=== PATIENT | female | born 1945 | race African-American/Black ===

== ENCOUNTER 2025-01-01 21:39 | Inpatient (IN) | payer MEDICARE, OTHER ==
[~2025-01-01] VITALS: Ht 154.9 cm; Wt 41.7 kg
[2025-01-01 22:38] LABS: BASOPHILS # (AUTO) 0.1 K/uL (0.0-0.2); BASOPHILS % (AUTO) 1.1 % (0.0-2.0); EOSINOPHILS # (AUTO) 0.3 K/uL (0.0-0.7); HEMATOCRIT 43 % (33-45); HEMOGLOBIN 13.8 g/dL (11.5-14.8); LYMPHOCYTES # (AUTO) 1.1 K/uL (0.8-4.8); LYMPHOCYTES % (AUTO) 18.2 % (20.0-44.0); MEAN CORPUSCULAR HEMOGLOBIN 27 PG (26.0-33.0); MEAN CORPUSCULAR HGB CONC 32 g/dl (31.0-36.0); MEAN CORPUSCULAR VOLUME 85 fL (82-100); MONOCYTES # (AUTO) 0.8 K/uL (0.1-1.30); MONOCYTES % (AUTO) 13.5 % (2.0-12.0); NEUTROPHILS # (AUTO) 3.6 K/uL (1.8-8.9); NEUTROPHILS % (AUTO) 62.2 % (43.0-81.0); PLATELET COUNT (AUTO) 406 K/uL (150-450); RED BLOOD CELL COUNT(AUTO) 5.07 MIL/uL (4.0-5.2); RED CELL DISTRIBUTION WIDTH 15.7 % (11.5-15.0); WHITE BLOOD COUNT (AUTO) 5.8 K/uL (4.3-11.0)
[2025-01-01] MEDS: IV NS 0.9% 1,000 ML BAG IV ONE (23:00)
[2025-01-01] MEDS: AZITHROMYCIN 500 MG in IV D5W 250 ML IV ONE (23:00)
[2025-01-01] MEDS ORDERED: AZITHROMYCIN 500 MG VIAL ONE (23:09)
[2025-01-01] MEDS ORDERED: CEFTRIAXONE 1GM BAG (ER ONLY) 50 ML IV ONE (23:09)
[2025-01-01] MEDS: CEFTRIAXONE 1GM BAG (ER ONLY) 50 ML IV ONE (23:31)
[2025-01-01 23:47] LABS: LACTIC ACID 2.7 mmol/L (0.4-2.0)
[2025-01-02] MEDS: oxyCODONE/APAP (5/325 MG) 1 UDTAB TABLET PO ONE
[2025-01-02 00:08] LABS: CALCIUM, SERUM 8.9 mg/dL (8.5-10.1); CARBON DIOXIDE 27 mmol/L (21-32); CHLORIDE 100 mmol/L (98-107); CREATININE 0.8 mg/dL (0.6-1.3); GLUCOSE 91 mg/dL (74-106); POTASSIUM 3.5 mmol/L (3.5-5.1); SODIUM SERUM 138 mmol/L (136-145); UREA NITROGEN, BLOOD 18 mg/dL (7-18)
[2025-01-02 00:22] LABS: ALANINE AMINOTRANSFERASE 18 U/L (12-78); ALBUMIN 2.9 g/dL (3.4-5.0); ALKALINE PHOSPHATASE 54 U/L (46-116); ASPARTATE AMINOTRANSFERASE 19 U/L (15-37); BILIRUBIN,DIRECT 0.2 mg/dL (0.0-0.2); BILIRUBIN,TOTAL 0.5 mg/dL (0.2-1.0); NT-PRO BNP 283 pg/mL (0-125); TOTAL PROTEIN, SERUM 7.2 g/dL (6.4-8.2)
[2025-01-02] MEDS ORDERED: MAG HYDROX/AL HYDROX/SIMETH 30 ML UDC PO PRN (00:30)
[2025-01-02 00:47] LABS: INR 1.2 (0.91-1.10); PARTIAL THROMBOPLASTIN TIME 31.6 SEC (24.3-34.3); PROTHROMBIN TIME 12.6 SECS (9.2-11.1)
[2025-01-02 01:21] VITALS: BP 137/101; TEMP 97.9; O2SAT 93
[2025-01-02] MEDS: ENOXAPARIN SODIUM 30 MG/0.3 ML DISP.SYRIN SQ SCH (01:30)
[2025-01-02 02:00] VITALS: BP 111/80; TEMP 98.3; O2SAT 97
[2025-01-02] MEDS: ONDANSETRON HCL/PF 4 MG/2 ML VIAL IVP PRN (02:02)
[2025-01-02 06:49] LABS: BASOPHILS % (AUTO) 0.4 % (0.0-2.0); EOSINOPHILS # (AUTO) 0.1 K/uL (0.0-0.7); EOSINOPHILS % (AUTO) 1.9 % (0.0-6.0); HEMATOCRIT 39 % (33-45); HEMOGLOBIN 12.6 g/dL (11.5-14.8); LYMPHOCYTES % (AUTO) 16.8 % (20.0-44.0); MEAN CORPUSCULAR HEMOGLOBIN 27 PG (26.0-33.0); MEAN CORPUSCULAR HGB CONC 32 g/dl (31.0-36.0); MEAN CORPUSCULAR VOLUME 85 fL (82-100); MONOCYTES # (AUTO) 0.7 K/uL (0.1-1.30); MONOCYTES % (AUTO) 10.8 % (2.0-12.0); NEUTROPHILS # (AUTO) 4.3 K/uL (1.8-8.9); NEUTROPHILS % (AUTO) 70.1 % (43.0-81.0); PLATELET COUNT (AUTO) 383 K/uL (150-450); RED CELL DISTRIBUTION WIDTH 15.4 % (11.5-15.0); WHITE BLOOD COUNT (AUTO) 6.2 K/uL (4.3-11.0)
[2025-01-02 07:30] VITALS: BP 96/102; TEMP 97.7; O2SAT 100
[2025-01-02 07:31] LABS: CALCIUM, SERUM 8.3 mg/dL (8.5-10.1); CREATININE 0.6 mg/dL (0.6-1.3); POTASSIUM 4.6 mmol/L (3.5-5.1)
[2025-01-02 08:25] LABS: PHOSPHORUS 3.3 mg/dL (2.5-4.9)
[2025-01-02] MEDS ORDERED: ATOR20TA PO (08:44)
[2025-01-02] MEDS ORDERED: METO25TA4 PO (08:44)
[2025-01-02] MEDS ORDERED: BIMA2.5D5 EACHEYE (08:44)
[2025-01-02] MEDS ORDERED: MONT10TA22 PO (08:44)
[2025-01-02] MEDS: PANTOPRAZOLE 40 MG VIAL IV SCH (08:50)
[2025-01-02] MEDS: HYDROCODONE/APAP 5/325MG TABLET PO PRN (08:51)
[2025-01-02] MEDS ORDERED: MONTELUKAST SODIUM (10MG) 10 MG TABLET PO PRN (10:00)
[2025-01-02] MEDS ORDERED: oxyCODONE/APAP (5/325 MG) 1 UDTAB TABLET PO PRN (10:00)
[2025-01-02] MEDS: MORPHINE SULFATE INJ 2 MG/ML DISP.SYRIN IV PRN (10:09)
[2025-01-02] MEDS: ENSURE ENLIVE 237 ML LIQUID (VANILLA) PO SCH (12:08)
[2025-01-02 16:43] VITALS: BP 120/93; TEMP 97.9; O2SAT 94
[2025-01-02 20:00] VITALS: BP 133/91; TEMP 98.2; O2SAT 96
[2025-01-02] MEDS: CEFTRIAXONE 1 G in IV D5W 50 ML IV SCH (22:42)
[2025-01-02] MEDS: AZITHROMYCIN 500 MG in IV D5W 250 ML IV SCH (23:12)
[2025-01-03] VITALS: BP 118/87; TEMP 98.1; O2SAT 94
[2025-01-03 04:00] VITALS: BP 119/80; TEMP 97.9; O2SAT 100
[2025-01-03 07:00] VITALS: BP 107/74; TEMP 97.7; O2SAT 96
[2025-01-03] MEDS: METOPROLOL SUCCINATE 25 MG TAB.SR.24H PO SCH (08:13)
[2025-01-03] MEDS: PANTOPRAZOLE 40 MG TABLET.DR PO SCH (08:13)
[2025-01-03 11:30] VITALS: BP 97/85; TEMP 98.6; O2SAT 96
[2025-01-03 13:08] LABS: PROTEIN, BODY FLUID 4.4 G/DL
[2025-01-03 14:03] LABS: APPEARANCE,SPUN,BODY FLUID CLEAR (CLEAR)
[2025-01-03 14:04] LABS: TOTAL VOLUME,BODY FLUID 1400 mL
[2025-01-03 14:14] LABS: WBC, BODY FLUID 2094 /cu. mm. (0-200)
[2025-01-03 14:17] LABS: MONOCYTES,BODY FLUID 3 %
[2025-01-03] MEDS: LIDOCAINE 5% OINT 35.44 GM TUBE TP SCH (14:53)
[2025-01-03] MEDS: ACETAMINOPHEN 325 MG TABLET PO PRN (16:18)
[2025-01-03] MEDS: AMMONIUM LACTATE 227 GM BOTTLE TP SCH (16:19)
[2025-01-03 20:00] VITALS: BP 90/78; TEMP 98.4; O2SAT 100
[2025-01-04] VITALS: BP 115/74; TEMP 98.2; O2SAT 98
[2025-01-04] MEDS: MAGNESIUM HYDROXIDE 30 ML UDC PO PRN (03:33)
[2025-01-04 04:00] VITALS: BP 111/79; TEMP 98.2; O2SAT 91; O2SAT 97
[2025-01-04 06:57] LABS: BASOPHILS % (AUTO) 0.6 % (0.0-2.0); EOSINOPHILS # (AUTO) 0.3 K/uL (0.0-0.7); EOSINOPHILS % (AUTO) 6.6 % (0.0-6.0); HEMATOCRIT 38 % (33-45); HEMOGLOBIN 12.5 g/dL (11.5-14.8); LYMPHOCYTES # (AUTO) 0.8 K/uL (0.8-4.8); LYMPHOCYTES % (AUTO) 16.6 % (20.0-44.0); MEAN CORPUSCULAR HEMOGLOBIN 28 PG (26.0-33.0); MEAN CORPUSCULAR HGB CONC 33 g/dl (31.0-36.0); MEAN CORPUSCULAR VOLUME 84 fL (82-100); MONOCYTES % (AUTO) 19.9 % (2.0-12.0); NEUTROPHILS # (AUTO) 2.8 K/uL (1.8-8.9); NEUTROPHILS % (AUTO) 56.3 % (43.0-81.0); PLATELET COUNT (AUTO) 348 K/uL (150-450); RED BLOOD CELL COUNT(AUTO) 4.55 MIL/uL (4.0-5.2); RED CELL DISTRIBUTION WIDTH 15.4 % (11.5-15.0)
[2025-01-04 07:23] LABS: CALCIUM, SERUM 8.4 mg/dL (8.5-10.1); CREATININE 0.6 mg/dL (0.6-1.3); POTASSIUM 4.2 mmol/L (3.5-5.1)
[2025-01-04 08:00] VITALS: BP 116/72; TEMP 98.1; O2SAT 97
[2025-01-04 12:00] VITALS: BP 97/59; TEMP 98.2; O2SAT 94
[2025-01-04 16:23] VITALS: BP 103/73; TEMP 98.4; O2SAT 93
[2025-01-04 20:00] VITALS: BP 129/88; TEMP 98.6; O2SAT 93
[2025-01-05] VITALS: BP 106/57; TEMP 98.6; O2SAT 94
[2025-01-05 06:00] VITALS: BP 131/86; TEMP 98.6; O2SAT 93
[2025-01-05 08:00] VITALS: BP 113/81; TEMP 98.1; O2SAT 94
[2025-01-05] MEDS: MORPHINE SULFATE INJ 2 MG/ML DISP.SYRIN IV PRN (11:50)
[2025-01-05 12:00] VITALS: BP 144/84; TEMP 98.2; O2SAT 100
[2025-01-05] MEDS ORDERED: MORPHINE SULFATE INJ 2 MG/ML DISP.SYRIN IV PRN (14:00)
[2025-01-05 16:00] VITALS: BP 111/90; TEMP 98.1; O2SAT 94
[2025-01-05 21:21] VITALS: BP 124/73; TEMP 98.4; O2SAT 96
[2025-01-06 00:10] VITALS: BP 127/116; TEMP 98; O2SAT 96
[2025-01-06 07:52] LABS: CALCIUM, SERUM 9.1 mg/dL (8.5-10.1); CREATININE 0.7 mg/dL (0.6-1.3); POTASSIUM 4.2 mmol/L (3.5-5.1)
[2025-01-06 07:54] LABS: BASOPHILS % (AUTO) 0.7 % (0.0-2.0); EOSINOPHILS # (AUTO) 0.2 K/uL (0.0-0.7); EOSINOPHILS % (AUTO) 4.3 % (0.0-6.0); HEMATOCRIT 39 % (33-45); HEMOGLOBIN 12.9 g/dL (11.5-14.8); LYMPHOCYTES # (AUTO) 1.3 K/uL (0.8-4.8); LYMPHOCYTES % (AUTO) 22.6 % (20.0-44.0); MEAN CORPUSCULAR HEMOGLOBIN 28 PG (26.0-33.0); MEAN CORPUSCULAR HGB CONC 33 g/dl (31.0-36.0); MEAN CORPUSCULAR VOLUME 83 fL (82-100); MONOCYTES # (AUTO) 0.9 K/uL (0.1-1.30); MONOCYTES % (AUTO) 15.7 % (2.0-12.0); NEUTROPHILS # (AUTO) 3.3 K/uL (1.8-8.9); NEUTROPHILS % (AUTO) 56.7 % (43.0-81.0); PLATELET COUNT (AUTO) 408 K/uL (150-450); RED BLOOD CELL COUNT(AUTO) 4.64 MIL/uL (4.0-5.2); RED CELL DISTRIBUTION WIDTH 15.3 % (11.5-15.0); WHITE BLOOD COUNT (AUTO) 5.7 K/uL (4.3-11.0)
[2025-01-06 08:00] VITALS: BP 118/70; TEMP 97.9; O2SAT 99
[2025-01-06 12:00] VITALS: BP 129/82; TEMP 97.9; O2SAT 97
[2025-01-06 16:00] VITALS: BP 140/96; TEMP 98.1; O2SAT 97
[2025-01-06 20:00] VITALS: BP 114/79; TEMP 98.6; O2SAT 95
[2025-01-06] MEDS: AZITHROMYCIN 250 MG TABLET PO SCH (23:50)
[2025-01-07] VITALS (7 sets, daily range): BP systolic 95–139; BP diastolic 48–111; TEMP 97.5–98.2; O2SAT 92–100
[2025-01-07] MEDS ORDERED: FENTANYL PF 100MCG/2ML AMPUL ONE (14:29)
[2025-01-07] MEDS: ALPRAZOLAM 0.25 MG TABLET PO PRN (16:19)
[2025-01-07] MEDS: ACETAMINOPHEN ES 500 MG TABLET PO ONE (16:19)
[2025-01-07] MEDS: TRAMADOL HCL 50 MG TABLET PO PRN (17:56)
[2025-01-07] MEDS ORDERED: KETOROLAC TROMETHAMINE 15 MG/ML VIAL IM PRN (19:30)
[2025-01-07] MEDS: GABAPENTIN 100 MG CAPSULE PO SCH (20:14)
[2025-01-08 00:36] VITALS: BP 110/78; TEMP 98.2; O2SAT 96
[2025-01-08 07:00] VITALS: BP 135/73; TEMP 98.1; O2SAT 92
[2025-01-08 07:16] LABS: BASOPHILS % (AUTO) 0.5 % (0.0-2.0); EOSINOPHILS # (AUTO) 0.2 K/uL (0.0-0.7); EOSINOPHILS % (AUTO) 3.3 % (0.0-6.0); HEMATOCRIT 37 % (33-45); HEMOGLOBIN 12.1 g/dL (11.5-14.8); LYMPHOCYTES # (AUTO) 0.6 K/uL (0.8-4.8); LYMPHOCYTES % (AUTO) 13.2 % (20.0-44.0); MEAN CORPUSCULAR HEMOGLOBIN 28 PG (26.0-33.0); MEAN CORPUSCULAR HGB CONC 33 g/dl (31.0-36.0); MEAN CORPUSCULAR VOLUME 84 fL (82-100); MONOCYTES % (AUTO) 20.2 % (2.0-12.0); NEUTROPHILS % (AUTO) 62.8 % (43.0-81.0); PLATELET COUNT (AUTO) 359 K/uL (150-450); RED BLOOD CELL COUNT(AUTO) 4.37 MIL/uL (4.0-5.2); WHITE BLOOD COUNT (AUTO) 4.8 K/uL (4.3-11.0)
[2025-01-08 07:28] LABS: CALCIUM, SERUM 8.4 mg/dL (8.5-10.1); CREATININE 0.7 mg/dL (0.6-1.3); PHOSPHORUS 3.1 mg/dL (2.5-4.9); POTASSIUM 3.9 mmol/L (3.5-5.1)
[2025-01-08 11:26] LABS: EOSINOPHILS % (MANUAL) 5 % (0-4); LYMPHOCYTES % (MANUAL) 12 % (16-48); MONOCYTES % (MANUAL) 23 % (0-11.0); NEUTROPHILS % (MANUAL) 60 (42-76); PLATELET ESTIMATE ADEQUATE
[2025-01-08 11:27] LABS: ANISOCYTOSIS 1+
[2025-01-08 16:00] VITALS: BP 117/84; TEMP 97.9; O2SAT 98
[2025-01-08 20:00] VITALS: BP 104/73; TEMP 97.7; TEMP 98.4; O2SAT 97
[2025-01-09] VITALS: BP 106/63; TEMP 98.1; O2SAT 97
[2025-01-09 04:00] VITALS: BP 121/73; TEMP 98; O2SAT 97
[2025-01-09 08:00] VITALS: BP 117/75; TEMP 98.2; O2SAT 97
[2025-01-09] MEDS ORDERED: GABA100C PO ×2 (10:24→16:30)
[2025-01-09 16:00] VITALS: BP 123/86; TEMP 98.4; O2SAT 97
[2025-01-09] MEDS ORDERED: BACL5TAB PO ×2 (16:30→16:31)
[2025-01-09 20:00] VITALS: BP 93/60; TEMP 98.1; O2SAT 95
[2025-01-09 20:34] VITALS: BP 93/60; TEMP 98.1; O2SAT 95
[2025-01-10 08:00] VITALS: BP 130/75; TEMP 98.1; O2SAT 95
[2025-01-10] MEDS: GABAPENTIN 100 MG CAPSULE PO SCH (08:24)
[2025-01-10] MEDS: BACLOFEN (10 MG) 10 MG TABLET PO PRN (08:33)
[2025-01-10] MEDS ORDERED: MEGE400O4 PO (09:55)
[2025-01-10] MEDS ORDERED: HYDR-3976 PO (09:55)
[2025-01-10] MEDS: HYDROCODONE/APAP 5/325MG TABLET PO PRN (11:17)
[2025-01-10] MEDS: MEGESTROL ACETATE SUSP 400 MG/10 ML UDC PO SCH (13:52)
[2025-01-10 16:28] VITALS: BP 129/80; TEMP 97.5; O2SAT 95
[2025-01-10 20:00] VITALS: BP 106/63; TEMP 97.8; O2SAT 97
[2025-01-11 08:00] VITALS: BP 143/79; TEMP 97.9; O2SAT 96
[2025-01-11 16:00] VITALS: BP 124/76; TEMP 98.4; O2SAT 92
== END 2025-01-11 17:20 | DRG 181 ==
LOC: ER 21:41 → TELE 01-02 00:48 → MED 01-09 09:56
PROVIDERS: ADMIT Internal Medicine; ATTEND Nurse Practitioner Acute Care
PROC: 0W9B3ZX Drainage of Left Pleural Cavity, Percutaneous Approach, Diagnostic (ICD-10-PCS; 2025-01-03)
PROC: 0W9B30Z Drainage of Left Pleural Cavity with Drainage Device, Percutaneous Approach (ICD-10-PCS; principal; 2025-01-07 13:30)
DX: C34.90 Malignant neoplasm of unspecified part of unspecified bronchus or lung (principal); J91.0 Malignant pleural effusion; J98.11 Atelectasis; I10 Essential (primary) hypertension; I11.9 Hypertensive heart disease without heart failure; Z88.6 Allergy status to analgesic agent; G62.9 Polyneuropathy, unspecified; L84 Corns and callosities; Z92.21 Personal history of antineoplastic chemotherapy; Z85.6 Personal history of leukemia; Z87.891 Personal history of nicotine dependence; Z88.5 Allergy status to narcotic agent; Z76.5 Malingerer [conscious simulation]; G89.4 Chronic pain syndrome; Z79.899 Other long term (current) drug therapy
CPT/HCPCS: 36415; 71045-TC; 71250-TC; 80048-TC; 80076-TC; 83605-TC; 83735-TC; 83880; 84100-TC; 84484-TC; 85025-TC; 85730-TC; 87040-TC; 87102-TC; 89051-TC; 93307-TC; 97110-TC; 97116-TC; 97530-TC; A4223; G0378; J0456; J0690; J0696; J1650; J2270; J2405; J2470; J2704; J3010; J3490; J7030; J7040; J7050; J7060

== ENCOUNTER 2025-02-06 15:56 | Inpatient (IN) | payer MEDICARE, OTHER ==
[~2025-02-06] VITALS: Ht 152.4 cm; Wt 54.9 kg
[~2025-02-06 15:56] MED LIST: ATOR20TA PO; BACL5TAB PO; BIMA2.5D5 EACHEYE; GABA100C PO; HYDR-3976 PO; MEGE400O4 PO; METO25TA4 PO; MONT10TA22 PO
[2025-02-06] MEDS ORDERED: ONDANSETRON HCL/PF 4 MG/2 ML VIAL ONE (16:11)
[2025-02-06] MEDS ORDERED: MORPHINE SULFATE INJ 4 MG/ML DISP.SYRIN ONE (16:11)
[2025-02-06] MEDS: MORPHINE SULFATE INJ 2 MG/ML DISP.SYRIN IV ONE (16:30)
[2025-02-06] MEDS ORDERED: ZOLPIDEM TARTRATE 5 MG TABLET PO PRN (16:30)
[2025-02-06] MEDS ORDERED: Z GUARD REMEDY 4 OZ OINT TP PRN (16:30)
[2025-02-06] MEDS ORDERED: HYDROCODONE/APAP 7.5/325MG 1 EACH TABLET PO PRN (16:30)
[2025-02-06] MEDS ORDERED: MAG HYDROX/AL HYDROX/SIMETH 30 ML UDC PO PRN (16:30)
[2025-02-06] MEDS ORDERED: ONDANSETRON HCL/PF 4 MG/2 ML VIAL IVP PRN (16:30)
[2025-02-06] MEDS ORDERED: ACETAMINOPHEN 325 MG TABLET PO PRN ×2 (16:30→17:30)
[2025-02-06] MEDS: ONDANSETRON HCL/PF 4 MG/2 ML VIAL IVP ONE (16:30)
[2025-02-06] MEDS ORDERED: MAGNESIUM HYDROXIDE 30 ML UDC PO PRN (16:30)
[2025-02-06] MEDS ORDERED: MONTELUKAST SODIUM (10MG) 10 MG TABLET PO PRN (16:30)
[2025-02-06] MEDS: IV NS 0.9% 500 ML BAG IV ONE (16:35)
[2025-02-06 16:36] LABS: BASOPHILS % (AUTO) 0.5 % (0.0-2.0); EOSINOPHILS # (AUTO) 0.3 K/uL (0.0-0.7); EOSINOPHILS % (AUTO) 7.8 % (0.0-6.0); HEMATOCRIT 40 % (33-45); HEMOGLOBIN 12.8 g/dL (11.5-14.8); LYMPHOCYTES # (AUTO) 0.9 K/uL (0.8-4.8); MEAN CORPUSCULAR HEMOGLOBIN 27 PG (26.0-33.0); MEAN CORPUSCULAR HGB CONC 32 g/dl (31.0-36.0); MEAN CORPUSCULAR VOLUME 86 fL (82-100); MONOCYTES # (AUTO) 0.7 K/uL (0.1-1.30); MONOCYTES % (AUTO) 16.3 % (2.0-12.0); NEUTROPHILS # (AUTO) 2.3 K/uL (1.8-8.9); NEUTROPHILS % (AUTO) 54.4 % (43.0-81.0); PLATELET COUNT (AUTO) 349 K/uL (150-450); RED BLOOD CELL COUNT(AUTO) 4.66 MIL/uL (4.0-5.2); RED CELL DISTRIBUTION WIDTH 15.6 % (11.5-15.0); WHITE BLOOD COUNT (AUTO) 4.3 K/uL (4.3-11.0)
[2025-02-06 16:42] LABS: CALCIUM, SERUM 9.2 mg/dL (8.5-10.1); CREATININE 0.6 mg/dL (0.6-1.3); POTASSIUM 4.3 mmol/L (3.5-5.1)
[2025-02-06 16:51] LABS: INR 1.08 (0.91-1.10); PARTIAL THROMBOPLASTIN TIME 27.1 SEC (24.3-34.3); PROTHROMBIN TIME 11.4 SECS (9.2-11.1)
[2025-02-06] MEDS ORDERED: MEGESTROL ACETATE SUSP 400 MG/10 ML UDC PO SCH (17:00)
[2025-02-06] MEDS: GABAPENTIN 100 MG CAPSULE PO SCH (17:00)
[2025-02-06] MEDS ORDERED: HYDR-3980 PO (17:06)
[2025-02-06] MEDS ORDERED: ACET325T53 PO (17:06)
[2025-02-06] MEDS ORDERED: MELA5TAB PO (17:06)
[2025-02-06] MEDS ORDERED: LIDO30CR47 TP (17:06)
[2025-02-06] MEDS ORDERED: AMMO385C4 TP (17:06)
[2025-02-06] MEDS ORDERED: MEGE400O4 PO (17:06)
[2025-02-06] MEDS ORDERED: AMIN30LI2 PO (17:06)
[2025-02-06 17:17] LABS: EOSINOPHILS % (MANUAL) 15 % (0-4); LYMPHOCYTES % (MANUAL) 23 % (16-48); MONOCYTES % (MANUAL) 11 % (0-11.0); NEUTROPHILS % (MANUAL) 51 (42-76); PLATELET ESTIMATE ADEQUATE
[2025-02-06 17:18] LABS: ANISOCYTOSIS 1+
[2025-02-06 17:30] VITALS: O2SAT 97
[2025-02-06] MEDS ORDERED: HYDROCODONE/APAP 10/325MG TABLET PO PRN (17:30)
[2025-02-06] MEDS ORDERED: Medication Not On Formulary EA (Melatonin 10 MG) PO PRN (17:30)
[2025-02-06] MEDS ORDERED: LIDOCAINE TP PRN (17:30)
[2025-02-06 20:00] VITALS: BP_SYST 113; BP_SYST 146; BP_DIAS 69; BP_DIAS 72; TEMP 99; O2SAT 100; O2SAT 95
[2025-02-06] MEDS: MORPHINE SULFATE INJ 4 MG/ML DISP.SYRIN IV PRN (21:03)
[2025-02-06] MEDS: LATANOPROST EYE DROP 0.005% 2.5 ML BOTTLE OP SCH (22:00)
[2025-02-07 06:43] LABS: BASOPHILS % (AUTO) 0.6 % (0.0-2.0); EOSINOPHILS # (AUTO) 0.4 K/uL (0.0-0.7); EOSINOPHILS % (AUTO) 9.6 % (0.0-6.0); HEMATOCRIT 33 % (33-45); HEMOGLOBIN 10.8 g/dL (11.5-14.8); LYMPHOCYTES # (AUTO) 1.1 K/uL (0.8-4.8); LYMPHOCYTES % (AUTO) 27.4 % (20.0-44.0); MEAN CORPUSCULAR HEMOGLOBIN 28 PG (26.0-33.0); MEAN CORPUSCULAR HGB CONC 33 g/dl (31.0-36.0); MEAN CORPUSCULAR VOLUME 85 fL (82-100); MONOCYTES # (AUTO) 0.7 K/uL (0.1-1.30); MONOCYTES % (AUTO) 18.4 % (2.0-12.0); NEUTROPHILS # (AUTO) 1.7 K/uL (1.8-8.9); PLATELET COUNT (AUTO) 270 K/uL (150-450); RED BLOOD CELL COUNT(AUTO) 3.89 MIL/uL (4.0-5.2); RED CELL DISTRIBUTION WIDTH 15.4 % (11.5-15.0); WHITE BLOOD COUNT (AUTO) 3.9 K/uL (4.3-11.0)
[2025-02-07 07:00] VITALS: BP 121/80; TEMP 97.7; O2SAT 96
[2025-02-07 07:34] LABS: CALCIUM, SERUM 8.5 mg/dL (8.5-10.1); CARBON DIOXIDE 26 mmol/L (21-32); CHLORIDE 106 mmol/L (98-107); CREATININE 0.7 mg/dL (0.6-1.3); GLUCOSE 82 mg/dL (74-106); PHOSPHORUS 3.3 mg/dL (2.5-4.9); SODIUM SERUM 139 mmol/L (136-145); UREA NITROGEN, BLOOD 11 mg/dL (7-18)
[2025-02-07 08:56] LABS: EOSINOPHILS % (MANUAL) 7 % (0-4); LYMPHOCYTES % (MANUAL) 23 % (16-48); MONOCYTES % (MANUAL) 25 % (0-11.0); NEUTROPHILS % (MANUAL) 45 (42-76)
[2025-02-07 08:57] LABS: ANISOCYTOSIS 1+; PLATELET ESTIMATE ADEQUATE
[2025-02-07] MEDS: PROSOURCE / PROSTAT (PYXIS) 30 ML UDC PO SCH (09:00)
[2025-02-07] MEDS: AMMONIUM LACTATE 227 GM BOTTLE TP SCH (09:00)
[2025-02-07] MEDS: ATORVASTATIN 10 MG TABLET PO SCH (09:00)
[2025-02-07] MEDS: MEGESTROL ACETATE SUSP 400 MG/10 ML UDC PO SCH (11:26)
[2025-02-07] MEDS: METOPROLOL SUCCINATE 25 MG TAB.SR.24H PO SCH (11:26)
[2025-02-07] MEDS: BACLOFEN (10 MG) 10 MG TABLET PO PRN (14:27)
[2025-02-07 16:00] VITALS: BP 109/68; TEMP 98.1; O2SAT 98
[2025-02-07] MEDS: HYDROCODONE/APAP 5/325MG TABLET PO ONE (18:43)
[2025-02-07 20:00] VITALS: BP 107/65; TEMP 98.2; O2SAT 94
[2025-02-08 06:29] LABS: BASOPHILS % (AUTO) 0.6 % (0.0-2.0); EOSINOPHILS # (AUTO) 0.4 K/uL (0.0-0.7); EOSINOPHILS % (AUTO) 10.9 % (0.0-6.0); HEMATOCRIT 37 % (33-45); HEMOGLOBIN 11.7 g/dL (11.5-14.8); LYMPHOCYTES % (AUTO) 30.2 % (20.0-44.0); MEAN CORPUSCULAR HEMOGLOBIN 27 PG (26.0-33.0); MEAN CORPUSCULAR HGB CONC 32 g/dl (31.0-36.0); MEAN CORPUSCULAR VOLUME 86 fL (82-100); MONOCYTES # (AUTO) 0.6 K/uL (0.1-1.30); MONOCYTES % (AUTO) 17.4 % (2.0-12.0); NEUTROPHILS # (AUTO) 1.4 K/uL (1.8-8.9); NEUTROPHILS % (AUTO) 40.9 % (43.0-81.0); PLATELET COUNT (AUTO) 288 K/uL (150-450); RED BLOOD CELL COUNT(AUTO) 4.31 MIL/uL (4.0-5.2); RED CELL DISTRIBUTION WIDTH 15.4 % (11.5-15.0); WHITE BLOOD COUNT (AUTO) 3.5 K/uL (4.3-11.0)
[2025-02-08 07:08] LABS: CALCIUM, SERUM 8.9 mg/dL (8.5-10.1); CARBON DIOXIDE 30 mmol/L (21-32); CHLORIDE 105 mmol/L (98-107); CREATININE 0.8 mg/dL (0.6-1.3); GLUCOSE 90 mg/dL (74-106); MAGNESIUM 2.2 mg/dL (1.8-2.4); PHOSPHORUS 3.4 mg/dL (2.5-4.9); POTASSIUM 4.3 mmol/L (3.5-5.1); SODIUM SERUM 138 mmol/L (136-145); UREA NITROGEN, BLOOD 11 mg/dL (7-18)
[2025-02-08 08:00] VITALS: BP 140/84; TEMP 98.8; O2SAT 97
[2025-02-08 09:28] VITALS: BP 140/84
[2025-02-08] MEDS: HYDROCODONE/APAP 5/325MG TABLET PO ONE (11:14)
== END 2025-02-08 15:15 | DRG 181 ==
LOC: ER 16:00 → MED 17:26
PROVIDERS: ADMIT Student in an Organized Health Care Education/Training Program; ATTEND Student in an Organized Health Care Education/Training Program
DX: C34.90 Malignant neoplasm of unspecified part of unspecified bronchus or lung (principal); J81.1 Chronic pulmonary edema; J91.0 Malignant pleural effusion; Z88.6 Allergy status to analgesic agent; Z88.5 Allergy status to narcotic agent; E78.5 Hyperlipidemia, unspecified; Z79.899 Other long term (current) drug therapy; I11.9 Hypertensive heart disease without heart failure; G89.29 Other chronic pain; Z87.891 Personal history of nicotine dependence
CPT/HCPCS: 36415; 71045-TC; 71250-TC; 80048-TC; 83735-TC; 84100-TC; 85025-TC; 85730-TC; 86850-TC; A4223; G0378; J2270; J2405; J7040

== ENCOUNTER 2025-07-22 05:10 | Inpatient (IN) | payer MEDICARE, OTHER ==
[~2025-07-22] VITALS: Ht 152.4 cm; Wt 44.0 kg
[~2025-07-22 05:10] MED LIST changes: +ACET325T53 PO; +AMIN30LI2 PO; +AMMO385C4 TP; -HYDR-3976 PO; +HYDR-3980 PO; +LIDO30CR47 TP; +MELA5TAB PO
[2025-07-22 06:11] LABS: PLATELET COUNT (AUTO) 198 K/uL (150-450); RED BLOOD CELL COUNT(AUTO) 5.16 MIL/uL (4.0-5.2); RED CELL DISTRIBUTION WIDTH 16.4 % (11.5-15.0); WHITE BLOOD COUNT (AUTO) 4.3 K/uL (4.3-11.0)
[2025-07-22 06:29] LABS: CALCIUM, SERUM 8.8 mg/dL (8.5-10.1); CREATININE 1.0 mg/dL (0.6-1.3); SODIUM SERUM 137 mmol/L (136-145); UREA NITROGEN, BLOOD 10 mg/dL (7-18)
[2025-07-22 06:37] LABS: ASPARTATE AMINOTRANSFERASE 25 U/L (15-37); NT-PRO BNP 839 pg/mL (0-125); TOTAL PROTEIN, SERUM 6.6 g/dL (6.4-8.2)
[2025-07-22] MEDS ORDERED: HYDROCODONE/APAP 5/325MG TABLET ONE (06:48)
[2025-07-22] MEDS: HYDROCODONE/APAP 5/325MG TABLET PO ONE (06:48)
[2025-07-22] MEDS ORDERED: IOHEXOL-350 100 ML VIAL IV ONE (07:03)
[2025-07-22] MEDS ORDERED: IV NS 0.9% 250 ML IV ONE (07:03)
[2025-07-22] MEDS ORDERED: CT SWABBABLE VALVE TRANS SET 1 EA INFUS.SET MC ONE (07:03)
[2025-07-22] MEDS ORDERED: GABAPENTIN 100 MG CAPSULE ONE (08:10)
[2025-07-22] MEDS ORDERED: BACLOFEN (10 MG) 10 MG TABLET ONE (08:10)
[2025-07-22] MEDS: GABAPENTIN 100 MG CAPSULE PO ONE (08:16)
[2025-07-22] MEDS: BACLOFEN (10 MG) 10 MG TABLET PO ONE (08:16)
[2025-07-22] MEDS ORDERED: ONDANSETRON HCL/PF 4 MG/2 ML VIAL ONE (08:28)
[2025-07-22] MEDS ORDERED: MORPHINE SULFATE INJ 4 MG/ML DISP.SYRIN ONE (08:29)
[2025-07-22] MEDS: ONDANSETRON HCL/PF 4 MG/2 ML VIAL IV ONE (08:35)
[2025-07-22] MEDS: MORPHINE SULFATE INJ 2 MG/ML DISP.SYRIN IV ONE (08:36)
[2025-07-22] MEDS ORDERED: MAG HYDROX/AL HYDROX/SIMETH 30 ML UDC PO PRN (09:00)
[2025-07-22] MEDS ORDERED: ACETAMINOPHEN 325 MG TABLET PO PRN ×2 (09:00)
[2025-07-22] MEDS ORDERED: CLONIDINE HCL 0.1 MG TABLET PO PRN (09:00)
[2025-07-22] MEDS ORDERED: HYDROCODONE/APAP 10/325MG TABLET PO PRN (09:00)
[2025-07-22] MEDS ORDERED: ONDANSETRON HCL/PF 4 MG/2 ML VIAL IVP PRN (09:00)
[2025-07-22] MEDS: GABAPENTIN 100 MG CAPSULE PO SCH (09:00)
[2025-07-22] MEDS ORDERED: MONTELUKAST SODIUM (10MG) 10 MG TABLET PO PRN (09:00)
[2025-07-22 09:20] VITALS: BP 149/81; TEMP 97.9; O2SAT 99
[2025-07-22 09:30] VITALS: BP 149/81; TEMP 97.5; O2SAT 99
[2025-07-22] MEDS: MEGESTROL ACETATE SUSP 400 MG/10 ML UDC PO SCH (09:58)
[2025-07-22] MEDS: METOPROLOL SUCCINATE 25 MG TAB.SR.24H PO SCH (09:59)
[2025-07-22] MEDS ORDERED: BACLOFEN (10 MG) 10 MG TABLET PO PRN (10:00)
[2025-07-22 16:04] VITALS: BP 118/83; TEMP 97.5; O2SAT 98
[2025-07-22 20:00] VITALS: BP 129/88; TEMP 97.7; O2SAT 99
[2025-07-22] MEDS: METHADONE HCL 10 MG TABLET PO SCH (20:09)
[2025-07-22 20:56] VITALS: BP 129/88; TEMP 97.7; O2SAT 99
[2025-07-23 06:45] LABS: PLATELET COUNT (AUTO) 202 K/uL (150-450); RED BLOOD CELL COUNT(AUTO) 4.94 MIL/uL (4.0-5.2); RED CELL DISTRIBUTION WIDTH 16.5 % (11.5-15.0); WHITE BLOOD COUNT (AUTO) 4.7 K/uL (4.3-11.0)
[2025-07-23] MEDS: HYDROMORPHONE HCL 2 MG TABLET PO PRN (06:54)
[2025-07-23 07:16] LABS: CALCIUM, SERUM 8.6 mg/dL (8.5-10.1); CREATININE 0.8 mg/dL (0.6-1.3); PHOSPHORUS 3.6 mg/dL (2.5-4.9); SODIUM SERUM 140.0 mmol/L (136-145); UREA NITROGEN, BLOOD 12.0 mg/dL (7-18)
[2025-07-23 08:00] VITALS: BP 149/91; TEMP 97.4; O2SAT 97
[2025-07-23 08:23] VITALS: BP 132/78; TEMP 98.1; O2SAT 98
[2025-07-23] MEDS: POTASSIUM CHLORIDE 20 MEQ TAB.PRT.SR PO ONE (09:10)
[2025-07-23] MEDS: LIDOCAINE 5% OINT 35.44 GM TUBE TP PRN (10:00)
[2025-07-23] MEDS: Z GUARD REMEDY 4 OZ OINT TP PRN (10:00)
[2025-07-23] MEDS: MORPHINE SULFATE INJ 4 MG/ML DISP.SYRIN IV PRN (10:36)
[2025-07-23] MEDS: MAGNESIUM HYDROXIDE 30 ML UDC PO PRN (10:36)
[2025-07-23] MEDS: THERAHONEY GEL 1.5 OZ TUBE TP SCH (11:50)
[2025-07-23] MEDS ORDERED: BISACODYL SUPP (10 MG) 10 MG/SUPP.RECT SUPP.RECT RC PRN (19:00)
[2025-07-23] MEDS: MAGNESIUM CITRATE 296 ML BOTTLE PO ONE (19:45)
[2025-07-23 20:00] VITALS: BP_SYST 106; BP_SYST 85; BP_SYST 88; BP_DIAS 54; BP_DIAS 70; BP_DIAS 74; TEMP 97.5; O2SAT 98
[2025-07-23 20:30] VITALS: BP_SYST 80; BP_SYST 81; BP_DIAS 50; BP_DIAS 53; O2SAT 98
[2025-07-23] MEDS: MIDODRINE HCL (5MG) 5 MG TABLET PO ONE (20:41)
[2025-07-23] MEDS: IV NS 0.9% 500 ML BAG IV ONE (20:43)
[2025-07-23 21:20] VITALS: BP 106/70; O2SAT 98
[2025-07-24 07:00] VITALS: BP 114/82; TEMP 97.7; O2SAT 100
[2025-07-24 16:00] VITALS: BP 91/51; TEMP 91; O2SAT 100
[2025-07-24 20:00] VITALS: BP 103/66; TEMP 97.9; O2SAT 7; O2SAT 97
[2025-07-25 08:00] VITALS: BP 93/62; TEMP 97.7; O2SAT 97
[2025-07-25 09:00] VITALS: BP 93/62
[2025-07-25] MEDS: ENSURE ENLIVE 237 ML LIQUID (VANILLA) PO SCH (09:05)
== END 2025-07-25 10:30 | disposition home health service (06) | DRG 181 ==
LOC: ER 05:20 → MED 08:56
PROVIDERS: ADMIT Internal Medicine; ATTEND Internal Medicine
DX: C34.92 Malignant neoplasm of unspecified part of left bronchus or lung (principal); C78.02 Secondary malignant neoplasm of left lung; E44.0 Moderate protein-calorie malnutrition; S22.42XA Multiple fractures of ribs, left side, initial encounter for closed fracture; J91.0 Malignant pleural effusion; Z85.118 Personal history of other malignant neoplasm of bronchus and lung; E87.6 Hypokalemia; Z20.822 Contact with and (suspected) exposure to COVID-19; I10 Essential (primary) hypertension; J43.9 Emphysema, unspecified; Z92.21 Personal history of antineoplastic chemotherapy; Z88.5 Allergy status to narcotic agent; Z88.6 Allergy status to analgesic agent; Z87.891 Personal history of nicotine dependence; Z79.899 Other long term (current) drug therapy; Z90.2 Acquired absence of lung [part of]; Z79.890 Hormone replacement therapy; X58.XXXA Exposure to other specified factors, initial encounter; Y92.9 Unspecified place or not applicable; E88.09 Other disorders of plasma-protein metabolism, not elsewhere classified; F32.9 Major depressive disorder, single episode, unspecified
CPT/HCPCS: 36415; 71045-TC; 80048-TC; 80053-TC; 83735-TC; 83880; 84100-TC; 84484-TC; 85025-TC; 86140-TC; 97112-TC; 97116-TC; 97530-TC; A4223; A7526; G0378; J2270; J2405; J7040; J7050; Q9967